=== PATIENT | female | born 1985 | race African-American/Black ===

== ENCOUNTER 2024-08-31 08:13 | Emergency (ER) | payer MEDICAID, OTHER ==
[~2024-08-31] VITALS: Ht 170.2 cm; Wt 82.0 kg
[2024-08-31 08:25] VITALS: O2SAT 98
[2024-08-31 11:11] VITALS: BP 116/69; PULSE 87; RESP 16; TEMP 36.72516; O2SAT 98
== END 2024-08-31 11:18 | disposition home or self-care (01) ==
LOC: ER 08:13
DX: R09.81 Nasal congestion (principal); R50.9 Fever, unspecified; J45.909 Unspecified asthma, uncomplicated; Z20.822 Contact with and (suspected) exposure to COVID-19
CPT/HCPCS: 87426; 87804; 99283

== ENCOUNTER 2025-07-28 12:40 | Emergency (ER) | payer OTHER ==
[~2025-07-28] VITALS: Ht 162.6 cm; Wt 75.0 kg
[2025-07-28 12:52] VITALS: O2SAT 100
[2025-07-28] MEDS ORDERED: D-ME473S50 PO (13:38)
[2025-07-28] MEDS ORDERED: ACET-3800 MT (13:38)
[2025-07-28 13:48] VITALS: BP 132/80; PULSE 95; RESP 15; TEMP 38.4; O2SAT 100
== END 2025-07-28 13:49 | disposition home or self-care (01) ==
LOC: ER 12:40
DX: J06.9 Acute upper respiratory infection, unspecified (principal); Z90.49 Acquired absence of other specified parts of digestive tract; Z20.822 Contact with and (suspected) exposure to COVID-19
CPT/HCPCS: 81025; 87426; 99283